=== PATIENT | female | born 1945 | race Caucasian/White ===

== ENCOUNTER → 2018-05-03 12:09 | Outpatient (CLI) | payer MEDICARE, OTHER, SELFPAY ==
--- NOTE | 2018-05-03 | DI.RAD.S_ITS ---
PROCEDURE: XR KNEE LT 3V INDICATIONS: LEFT KNEE PAIN TECHNIQUE: 3 views of the knee were acquired. COMPARISON: None. FINDINGS: Bones: No fractures or dislocations. No suspicious bony lesions. There is severe tricompartmental knee joint degeneration with joint space narrowing, periarticular osteophytes and chondrocalcinosis, most pronounced at the patellofemoral joint. There is osteopenia. Soft tissues: No joint effusion. No suspicious soft tissue calcifications. IMPRESSION: 1. Severe degenerative joint disease. 2. Osteopenia. Dictated by: Matthieu Graham M.D. on 05/03/2018 at 14:13 Approved by: Matthieu Graham M.D. on 05/03/2018 at 14:17
== END ==
PROVIDERS: PCP Psychiatry & Neurology Neurology; Visit Provider Family Medicine
DX: M25.562 Pain in left knee (principal); M17.12 Unilateral primary osteoarthritis, left knee; M85.862 Other specified disorders of bone density and structure, left lower leg
CPT/HCPCS: 73562

== ENCOUNTER → 2018-05-23 13:53 | Outpatient (CLI) | payer MEDICARE, OTHER, SELFPAY ==
--- NOTE | 2018-05-23 | DI.ECHO.S_ITS ---
[place] [facility]---------+ [facility] +---------+ : : [address] : : : : [id number] : : : : Phone: [phone]---------+ Echocardiogram Report + + :Name: SANDRA SUTHERLAND Study Date: 05/23/2018 Height: 64 in : :[facility] Weight: 205 lb: : Gender: Female BSA: 2.0 m2 : :: 1945 Age: 72 yrs : :Reason For Study: CARDIOMYOPATHY : : Performed By: Vika Neff : :Referring: MARÍA HA : + + Interpretation Summary The left ventricle is severely dilated and left ventricular systolic function is severely reduced with the ejection fraction visually estimated to be 20-25% with severe global hypokinesis with perhaps slightly better contractility in the proximal and mid posterior wall but generally a global process. The right ventricle is not well visualized but grossly appears normal size with systolic function that is mildly reduced. The right ventricular systolic pressure is estimated to be at least 40 mmHg based on an estimated right atrial pressure of 15 mm Hg. There is severe biatrial enlargement. There is moderate to severe central mitral regurgitation through an anatomically normal-appearing valve. There is mild tricuspid regurgitation. The ascending aorta is mildly enlarged. The patient was in atrial fibrillation with heart rates between 67-84 bpm during the exam. Procedure: A two-dimensional transthoracic echocardiogram with color flow and Doppler was performed. There is no prior echocardiogram noted for this patient. The patient was in atrial fibrillation with heart rates between 67-84 bpm during the exam. Left Ventricle: The left ventricle is severely dilated. There is normal left ventricular wall thickness. Left ventricular systolic function is severely reduced. The ejection fraction is estimated to be 20-25%. There is severe global hypokinesis of the left ventricle. With perhaps slightly better contractility in the proximal mid posterior wall generally a global process. Diastolic function could not be accurately assessed due to atrial fibrillation. Right Ventricle: There is a pacemaker lead in the right ventricle. The right ventricle is not well visualized. The right ventricle is grossly normal size. Right ventricular systolic function is mildly reduced. Atria: There is severe biatrial enlargement. There is no Doppler evidence for an interatrial shunt. Mitral Valve: The mitral valve leaflets appear normal. There is no evidence of stenosis, fluttering, or prolapse. There is moderate to severe mitral regurgitation. Aortic Valve: The aortic valve is trileaflet. The aortic valve is slightly calcified. The aortic valve opens well. There is no aortic valve stenosis. No aortic regurgitation is present. Tricuspid Valve: The tricuspid valve leaflets are thin and pliable. There is mild tricuspid regurgitation. The right ventricular systolic pressure is estimated to be at least 40 mmHg based on an estimated right atrial pressure of 15 mm Hg. Pulmonic Valve: The pulmonic valve is normal in structure and function. There is a trace or physiologic amount of pulmonic regurgitation. Great Vessels: The aortic root is normal size. The ascending aorta is mildly enlarged. The aortic arch could not be visualized. The pulmonary artery is normal size. The IVC is dilated (diameter is greater than 2.1 cm) and it collapses less than 50% with a sniff. This suggests a high right atrial pressure of 15 mm Hg. Pericardium/ Pleura There is no pericardial effusion. There is no pleural effusion. MMode/2D Measurements & Calculations LVIDd: 7.1 cm LVOT diam: 1.9 cm LVIDs: 6.3 cm Ao root diam: 3.0 cm FS: 10.3 % asc Aorta Diam: 3.5 cm EPSS: 2.2 cm IVSd: 0.45 cm LVPWd: 0.93 cm LV rayo. diameter/BSA (cm/m^2): 3.6 LV sys. diameter/BSA (cm/m^2): 3.2 LA A2 area: 32.9 cm2 RA long axis: 5.9 cm LA A4 area: 33.2 cm2 RA area: 26.2 cm2 LA length (vol): 6.0 cm RA vol: 99.5 ml LA vol: 153.5 ml RA : 50.3 ml/m2 LA vol index: 77.7 ml/m2 RVD1 (basal): 3.6 cm TAPSE: 1.3 cm Doppler Measurements & Calculations Ao V2 max: 103.0 cm/sec LVOT Max Oscar: 81.4 cm/sec Ao V2 mean: 79.0 cm/sec LV V1 max P.6 mmHg Ao max P.3 mmHg LV V1 VTI: 14.4 cm Ao mean P.7 mmHg NASREEN(I,D): 1.9 cm2 Ao V2 VTI: 20.3 cm NASREEN(V,D): 2.1 cm2 sev ratio: 0.71 NASREEN indexed to BSA (cm^2/m^2): 0.97 MV E max oscar: 136.1 cm/sec TR max oscar: 251.9 cm/sec Med Peak E' Oscar: 3.4 cm/sec TR max P.4 mmHg E/E' med: 40.4 Lat Peak E' Oscar: 5.9 cm/sec E/E' lat: 23.1 E/e' average: 31.7 MV dec time: 0.16 sec [facility] 38.9 ml Reading Physician:PM
== END ==
PROVIDERS: PCP Family Medicine; Visit Provider Internal Medicine Cardiovascular Disease
DX: I08.1 Rheumatic disorders of both mitral and tricuspid valves (principal); I42.8 Other cardiomyopathies
CPT/HCPCS: 93306

== ENCOUNTER → 2018-11-27 14:50 | Outpatient (CLI) | payer MEDICARE, OTHER, SELFPAY ==
--- NOTE | 2018-11-27 | DI.ECHO.S_ITS ---
[place] [facility]---------+ [facility] +---------+ : : [address] : : : : [id number] : : : : Phone: [phone] +---------+ Echocardiogram Report + + :Name: SANDRA SUTHERLAND Study Date: 11/27/2018 Height: 64 in : :[facility] Exam Location: [facility] Weight: 199 lb : : Gender: Female BSA: 2.0 m2 : :: 1945 Age: 72 yrs BP: 105/58 mmHg: :Reason For Study: CARDIOMYOPATHY : : Performed By: Talib Brown : :Referring: BEBO ZAVALA : + + Interpretation Summary The left ventricle is severely dilated. The ejection fraction is estimated to be 20-25%. There has been no significant change in LVEF since the previous study. The right ventricle is normal in size and function. There is a pacemaker lead in the right ventricle. Tented mitral leaflets due to severely dilated left ventricle. There is moderate to severe mitral regurgitation. Compared to the prior echo study, there has been no change in the severity of mitral regurgitation. There is trace tricuspid regurgitation. The right ventricular systolic pressure is estimated to be at least 43 mmHg based on an estimated right atrial pressure of 8 mm Hg. Compared to the prior echo exam, there has been no change in the severity of pulmonary hypertension. Procedure: A two-dimensional transthoracic echocardiogram with color flow and Doppler was performed. The study quality was technically good. Comparison is made with the echocardiogram of 05/23/18. The patient has a paced rhythm. The patient had frequent PVCs during the exam. Left Ventricle: There is normal left ventricular wall thickness. The left ventricle is severely dilated. There is no thrombus. The ejection fraction is estimated to be 20-25%. There has been no significant change since the previous study. There is severe global hypokinesis of the left ventricle. MV E/A: 2.1 Med Peak E' Oscar: 4.1 cm/sec E/E' med: 27.8. Right Ventricle: The right ventricle is normal in size and function. There is a pacemaker lead in the right ventricle. Atria: Both atria are severely dilated. Both atria have remained unchanged in size since the prior echo exam. The interatrial septum is intact with no evidence for an atrial septal defect. Mitral Valve: The mitral valve leaflets appear to open well. The mitral valve leaflets appear mildly thickened, but open well. The mitral valve leaflets are slightly calcified. Tented mitral leaflets due to severely dilated left ventricle. There is moderate to severe mitral regurgitation. Compared to the prior echo study, there has been no change in the severity of mitral regurgitation. Aortic Valve: The aortic valve is trileaflet. The aortic valve opens well. There is no aortic valve stenosis. No aortic regurgitation is present. Tricuspid Valve: The tricuspid valve is normal in structure and function. There is trace tricuspid regurgitation. The right ventricular systolic pressure is estimated to be at least 43 mmHg based on an estimated right atrial pressure of 8 mm Hg. Compared to the prior echo exam, there has been no change in the severity of pulmonary hypertension. Pulmonic Valve: The pulmonic valve is normal in structure and function. There is trace pulmonic regurgitation. Great Vessels: The aortic root is normal size. The dimensions of the ascending aorta are normal. The pulmonary artery is normal size. The IVC is dilated (diameter is greater than 2.1 cm) yet it collapses greater than 50% with a sniff. This suggests a right atrial pressure of 8 mm Hg. Pericardium/ Pleura There is no pericardial effusion. There is no pleural effusion. MMode/2D Measurements & Calculations LVIDd: 7.1 cm LVOT diam: 2.1 cm LVIDs: 6.5 cm Ao root diam: 3.0 cm FS: 8.0 % Aortic Jxn: 2.3 cm EPSS: 2.2 cm asc Aorta Diam: 3.4 cm IVSd: 0.75 cm LVPWd: 0.89 cm LV rayo. diameter/BSA (cm/m^2): 3.6 LV sys. diameter/BSA (cm/m^2): 3.3 LA dimension: 4.6 cm RA long axis: 5.9 cm LA A2 area: 37.1 cm2 RA area: 28.1 cm2 LA A4 area: 30.2 cm2 RA vol: 114.7 ml LA length (vol): 6.5 cm RA : 58.8 ml/m2 LA vol: 146.1 ml IVC diam: 2.6 cm LA vol index: 74.9 ml/m2 Doppler Measurements & Calculations Ao V2 max: 135.7 cm/sec LVOT Max Oscar: 71.0 cm/sec Ao V2 mean: 100.5 cm/sec LV V1 max P.0 mmHg Ao max P.4 mmHg LV V1 VTI: 16.7 cm Ao mean P.4 mmHg NASREEN(I,D): 1.9 cm2 Ao V2 VTI: 29.7 cm NASREEN(V,D): 1.7 cm2 sev ratio: 0.56 NASREEN indexed to BSA (cm^2/m^2): 0.95 MV E max oscar: 114.6 cm/sec TR max oscar: 294.7 cm/sec MV A max oscar: 55.6 cm/sec TR max P.7 mmHg MV E/A: 2.1 PA V2 max: 83.9 cm/sec Med Peak E' Oscar: 4.1 cm/sec PA V2 mean: 63.1 cm/sec E/E' med: 27.8 PA mean P.7 mmHg Lat Peak E' Oscar: 5.5 cm/sec PA pr(Accel): 51.6 mmHg E/E' lat: 21.0 PA Accel Time: 0.07 sec E/e' average: 24.4 MV dec time: 0.13 sec SV(LVOT): 55.2 ml Reading Physician:04:49 PM
== END ==
PROVIDERS: PCP Family Medicine; Visit Provider Internal Medicine Cardiovascular Disease
DX: I34.0 Nonrheumatic mitral (valve) insufficiency (principal); I42.8 Other cardiomyopathies; I27.20 Pulmonary hypertension, unspecified; Z95.0 Presence of cardiac pacemaker
CPT/HCPCS: 93306